=== PATIENT | female | born 1950 | race American Indian/Alaskan Native ===

== ENCOUNTER 2020-03-03 21:50 | Emergency (ER) | payer MEDICARE, OTHER ==
[2020-03-04] MEDS ORDERED: hydrALAZINE 25 MG TAB PO ONE (01:17)
[2020-03-04 01:20] VITALS: BP 169/72
--- NOTE | 2020-03-04 01:34 | Emergency Department Report ---
HPI - General Chief Complaint: High BP Time Seen by Provider: 03/04/20 01:10 - HPI HPI: This is a 69-year-old female who presents to the emergency department with a complaint of running out of her blood pressure medication 5 days ago. The patient is on hydralazine 50 mg twice daily. She says that she had a mild nagging generalized headache for the past few days but that has since resolved. She denies any vision change, slurred speech, numbness or paresthesias, or any neurological deficits. She denies any fever, chest pain, shortness of breath. She denies any tobacco or illicit drug use. She drinks 1 cup of coffee per day. Her primary care physician is Dr. Vahe Aleman and she has a virtual appointment with him tomorrow. She has been checking her blood pressure at home and she has had variable readings but many of them have been quite elevated. She has not taken anything for her symptoms prior to presentation today. She also has a past medical history of diabetes. ED Past Medical Hx - Past Medical History Previous Medical History?: Yes Hx Hypertension: Yes Hx Diabetes: Yes - Surgical History Past Surgical History?: No - Social History Smoking Status: Never Smoker Substance Use Type: None - Medications Home Medications: Home Medications Medication Instructions Recorded Confirmed Last Taken Type Fluconazole [Diflucan] 150 mg PO ONCE #1 tablet 05/15/13 Unknown Rx Sulfamethoxazole/Trimethoprim 1 each PO BID #14 tablet 05/15/13 Unknown Rx [Bactrim DS] glipiZIDE [Glipizide ER] 5 mg PO QAM 05/15/13 05/15/13 05/14/13 History metFORMIN [Glucophage] PO BID 05/15/13 05/15/13 05/14/13 History hydrALAZINE [Apresoline TAB] 50 mg PO BID #60 tablet 03/04/20 Unknown Rx ED Review of Systems ROS: Stated complaint: HIGH BP Other details as noted in HPI Comment: All other systems reviewed and negative Constitutional: denies: chills, fever Eyes: denies: eye pain, vision change ENT: denies: ear pain, throat pain Respiratory: denies: cough, shortness of breath Cardiovascular: denies: chest pain, palpitations Gastrointestinal: denies: abdominal pain, vomiting Genitourinary: denies: dysuria, discharge Musculoskeletal: denies: back pain, arthralgia Skin: denies: rash, lesions Neurological: headache (Resolved). denies: weakness, numbness, paresthesias Physical Exam - Physical Exam Vital Signs: Vital Signs 03/03/20 03/04/20 03/04/20 22:22 01:19 01:25 Temperature 98.1 F Pulse Rate 69 66 66 Respiratory 18 16 Rate Blood Pressure 206/82 169/72 Blood Pressure 169/72 [Left] O2 Sat by Pulse 99 Oximetry Physical Exam: GENERAL: The patient is well-developed well-nourished. HENT: Normocephalic. Atraumatic. Patient has moist mucous membranes. EYES: Extraocular motions are intact. No nystagmus. NECK: Supple. Trachea is midline. CHEST/LUNGS: Clear to auscultation. There is no respiratory distress noted. HEART/CARDIOVASCULAR: Regular. There is no tachycardia. There is no murmur. ABDOMEN: Abdomen is soft, nontender. Patient has normal bowel sounds. SKIN: Skin is warm and dry. NEURO: The patient is awake, alert, and oriented. The patient is cooperative. The patient has no focal neurologic deficits. Normal speech. Cranial nerves II through XII grossly intact. MUSCULOSKELETAL: There is no tenderness or deformity. There is no limitation range of motion. ED Course Vital Signs 03/03/20 03/04/20 03/04/20 22:22 01:19 01:25 Temperature 98.1 F Pulse Rate 69 66 66 Respiratory 18 16 Rate Blood Pressure 206/82 169/72 Blood Pressure 169/72 [Left] O2 Sat by Pulse 99 Oximetry ED Medical Decision Making - Medical Decision Making This patient presents to the emergency department with the complaint of elevated blood pressure after she has been out of her medication for the past 5 days. As part of the review of systems the patient does admit that she had a nagging headache over the past few days but that has since resolved. On examination she does not have any focal, motor or sensory deficits and her cranial nerves are intact. The patient's blood pressure has come down to a more reasonable level without any antihypertensive given. Currently the patient is asymptomatic and at her baseline status. The rest of her vital signs have been reassuring including being afebrile. She will be given a refill of her blood pressure medication and she has a virtual appoint with her primary care physician tomorrow. Critical Care Time: No Critical care attestation.: If time is entered above; I have spent that time in minutes in the direct care of this critically ill patient, excluding procedure time. ED Disposition Clinical Impression: Asymptomatic hypertensive urgency, Medication refill Disposition: TO HOME OR SELFCARE Is pt being admited?: No Condition: Stable Instructions: Hypertension (ED) Additional Instructions: Please follow-up with your primary care physician tomorrow as previously scheduled. Take your medications as prescribed. Try to stay away from foods that are high in salt and caffeinated products. Keep a blood pressure log. Return to the emergency department with any worsening of your symptoms, new or concerning symptoms not addressed during this current emergency department vi sit, or with any acute distress. Prescriptions: hydrALAZINE [Apresoline TAB] 50 mg PO BID #60 tablet Referrals: BERTIN ALEMAN MD [Referring] - 2-3 Days Time of Disposition: 01:34
== END 2020-03-04 01:58 | disposition home or self-care (01) ==
LOC: ED 21:50
DX: I16.0 Hypertensive urgency (principal); E11.9 Type 2 diabetes mellitus without complications; Z76.0 Encounter for issue of repeat prescription; Z79.899 Other long term (current) drug therapy; Z88.6 Allergy status to analgesic agent
CPT/HCPCS: 99282